=== PATIENT | male | born 1995 | race Caucasian/White ===

== ENCOUNTER 2019-03-16 21:17 | Emergency (ER) | payer OTHER ==
[~2019-03-16] VITALS: Ht 180.3 cm; Wt 42.6 kg
[2019-03-16 21:20] VITALS: BP 159/83; PULSE 59; RESP 18; Ht 180.3 cm; Wt 42.6 kg
--- NOTE | 2019-03-16 22:29 | ERD ---
ER Documentation Chief Complaint Chief Complaint L ear pressure x 2 days HPI Patient is a 23 years old male with no known PMHx presenting to the clinic for left ear fullness, mild pain, and hearing loss since yesterday. Patient denies trauma or ear discharge. Patient denies taking any otc medication. ROS All systems reviewed and are negative except as per history of present illness. Allergies Allergies: Coded Allergies: No Known Allergy (Unverified , 03/16/19) PMhx/Soc Medical and Surgical Hx: pt denies Medical Hx, pt denies Surgical Hx History of Surgery: No Anesthesia Reaction: No Hx Neurological Disorder: No Hx Respiratory Disorders: No Hx Cardiac Disorders: No Hx Psychiatric Problems: No Hx Miscellaneous Medical Probl: No Hx Alcohol Use: No Hx Substance Use: No Hx Tobacco Use: No Smoking Status: Never smoker FmHx Family History: No diabetes, No coronary disease, No other Physical Exam Vitals Vital Signs Date Temp Pulse Resp B/P (MAP) Pulse Ox O2 O2 Flow FiO2 Time Delivery Rate 03/16/19 97.5 59 18 159/83 98 21:20 (108) Physical Exam Const: No acute distress. Head: Atraumatic Eyes: Normal Conjunctiva ENT: Normal Nose and Mouth. Excessive cerumen in left ear (TM could not be visualized). No discharge noted. No tenderness. Neck: Full range of motion. No meningismus. Resp: Clear to auscultation bilaterally Cardio: Regular rate and rhythm, no murmurs Ext: No cyanosis, or edema Neur: Awake and alert Psych: Normal Mood and Affect Procedures/MDM Patient was seen and evaluated for left cerumen impaction without complications. Left ear lavage followed by repeat ear exam revealed mild ear canal erythema with normal TM. Patient reports no pain or hearing loss post lavage. Patient is stable and ready for discharge. F/U with PCP. Patient was advised to avoid using Q-tips. Departure Diagnosis: Primary Impression: Cerumen impaction Laterality: left Qualified Codes: H61.22 - Impacted cerumen, left ear Condition: Stable Patient Instructions: Cerumen Impaction, Home Care Referrals: [facility] Additional Instructions: Patient advised to return to the ED immediately for new or worsening symptoms. Patient advised to follow up with primary care provider in the next 24-48 hours. Patient verbalized understanding and agrees with treatment plan and course of action. If patient has no primary care they may follow up with [facility] + [facility] [address] [place] [address] or [facility] [address] [place] [address] or [facility] [address] [place] [address] ALYSE LACKEY PA-C Mar 16, 2019 22:29
== END 2019-03-16 22:55 | disposition home or self-care (01) ==
LOC: FTE 21:17
DX: H61.22 Impacted cerumen, left ear (principal)
CPT/HCPCS: 69209; Z7502